=== PATIENT | male | born 1990 | race Caucasian/White ===

== ENCOUNTER → 2017-10-01 | Emergency (ER) | payer OTHER ==
[~2017-10-01] VITALS: Ht 182.9 cm; Wt 70.3 kg
== END | disposition home or self-care (01) ==
LOC: ER 23:10
DX: R10.2 Pelvic and perineal pain (principal)

== ENCOUNTER 2017-11-18 07:57 | Emergency (ER) | payer OTHER ==
[~2017-11-18] VITALS: Ht 182.9 cm; Wt 70.3 kg
== END 2017-11-18 10:55 | disposition home or self-care (01) ==
LOC: ER 07:57
DX: J06.9 Acute upper respiratory infection, unspecified (principal)